=== PATIENT | male | born 1945 | race Hispanic/Latino ===

== ENCOUNTER 2017-09-28 10:46 | Outpatient (CLI) | payer MEDICARE ==
--- NOTE | 2017-09-28 11:54 | XRay Report ---
XRAY CHEST TWO VIEWS: 09/28/17 10:46:00 CLINICAL: Cough.Ex-smoker. COMPARISON: 03/12/11 FINDINGS: Normal heart and pulmonary vasculature.Stable aortic tortuosity and elongation. The lungs are normally expanded and clear. No airspace disease or pleural effusion. Stable mild eventration of the right hemidiaphragm. Scoliosis and degenerative change of the spine. IMPRESSION: No acute cardiopulmonary process.
== END 2017-09-28 10:47 | disposition home or self-care (01) ==
LOC: SPVIMAG 10:46
PROVIDERS: ATTEND Internal Medicine
DX: R05 Cough (principal); M47.899 Other spondylosis, site unspecified; M41.9 Scoliosis, unspecified; Z87.891 Personal history of nicotine dependence
CPT/HCPCS: 71046

== ENCOUNTER 2020-03-27 11:55 | Emergency (ER) | payer MEDICARE ==
[~2020-03-27 11:55] MED LIST: EPINEPHrine 1 MG/10 ML SYRINGE ONE
--- NOTE | 2020-03-27 12:12 | Emergency Department Report ---
ED CPR HPI - General Chief Complaint: Cardiac Arrest/CPR Stated Complaint: CARDIAC ARREST Time Seen by Provider: 03/27/20 12:06 Source: EMS Mode of arrival: Stretcher Limitations: Other - History of Present Illness Initial Comments: 74-year-old male presents to ED in cardiac arrest. EMS reports patient's last known well time was 9 AM. Someone called 911 for a welfare check. Patient was found to be in cardiac arrest, in PEA. ACLS was initiated, patient has received epi x4, bicarb x1, Domo tube in place. Patient in continued arrest upon ED arrival. EMS states patient apparently reported feeling unwell over the last few days. Patient had a recent negative Covid test. Apparently he was tested again, however those results had not yet been received. ACLS ongoing x20 minutes with EMS prior to ED arrival. MD Complaint: found unresponsive -: unknown Place: home Initial Findings in the Field: unresponsive, no respirations, PEA ROSC in the Field: Yes (briefly for 2 min) Treatments Prior to Arrival: other airway device, chest compressions, epinephrine mgs # (x4), sodium bicarbonate (x1) ED Review of Systems ROS: Stated complaint: CARDIAC ARREST Other details as noted in HPI Comment: Unobtainable due to pts medical conditions ED Past Medical Hx - Past Medical History Hx Hypertension: Yes ED Physical Exam - General Limitations: Other - Head Head exam: Present: atraumatic, normocephalic - Eye Pupils: Present: other (fixed bilaterally) - ENT ENT exam: Present: other (Domo Tube in place) - Neck Neck exam: Present: normal inspection - Respiratory Respiratory exam: Present: other (no spontaneous breaths) - Cardiovascular Cardiovascular Exam: Present: other (no palpable pulse) - GI/Abdominal GI/Abdominal exam: Present: soft. Absent: distended, tenderness - Extremities Exam Extremities exam: Present: normal inspection ED Medical Decision Making - Medical Decision Making Patient arrived to ED in cardiac arrest. Last known well time was 9 AM this morning. EMS presented to patient's home as a welfare check and was found to be in cardiac arrest. ACLS ongoing x20 minutes with EMS prior to ED arrival. ACLS was continued according to protocol. Please see nurses note for details. Unfortunately unable to obtain ROSC. Time of was called at 11:55 AM. Critical care attestation.: If time is entered above; I have spent that time in minutes in the direct care of this critically ill patient, excluding procedure time. ED Disposition Clinical Impression: Cardiac arrest Disposition: DC-20 Is pt being admited?: No Condition: Stable Time of Disposition: 12:26
== END 2020-03-27 15:45 ==
LOC: ED 11:55
DX: I46.9 Cardiac arrest, cause unspecified (principal); I10 Essential (primary) hypertension
CPT/HCPCS: 92950; 99285; J0171